=== PATIENT | female | born 1960 | race Caucasian/White ===

== ENCOUNTER 2016-12-01 13:00 | Inpatient (IN) | payer BC ==
[~2016-12-01] VITALS: Ht 167.6 cm; Wt 91.0 kg
--- NOTE | ~2016-12-01 | DS ---
PATIENT'S NAME: MARTIN MURILLO [facility] AGE: 56 Y [address] ROOM: [place] [address] LOCATION: [facility] ADMIT DATE: 01/18/2017 Discharge Summary DISCHARGE DATE: 01/20/2017 FAMILY PHYSICIAN: Enrique Garcia MD ATTENDING PHYSICIAN: Clifton Fischer PRIMARY DIAGNOSIS: Degenerative joint disease of the right knee. SECONDARY DIAGNOSES: 1. Depressive disorder. 2. Anxiety. 3. Gastroesophageal reflux disease. 4. Irritable bowel syndrome. 5. Hyperlipidemia. PROCEDURE PERFORMED: Right total knee arthroplasty. HISTORY: The patient is a 56-year-old female, who presents with advanced right knee degenerative joint disease and associated severely compromised activities of daily living. The patient has decided to proceed with total knee arthroplasty after having been thoroughly counseled regarding the risks, benefits, limitations, and alternatives. Please refer to the outpatient clinic notes and admission history and physical for this patient. HOSPITAL COURSE: The patient underwent a right total knee arthroplasty on 01/18/2017 without complications. Spinal anesthesia plus adductor canal block plus periarticular local anesthesia was utilized. The patient received 24 hours of perioperative prophylactic antibiotics and remained hemodynamically stable, neurovascularly intact throughout the entire hospital course. The postoperative prophylactic deep venous thrombosis prophylaxis consisted of Xarelto, early mobilization and pneumatic compression devices. Daily physical therapy for gait training, transfer training range of motion and quadriceps isometric exercises were received. The patient progressed well in physical therapy. On the date of discharge, 01/20/2017, the incision at the knee was healing well and showed no signs of infection. DISPOSITION: Home. DISCHARGE ACTIVITY: The patient is to bear weight as tolerated with range of motion and quadriceps isometric exercises as instructed. The operative extremity is to be elevated at least 90% of the day. There is to be sterile 4x4 gauze dressings to the incision daily. Dr. Fischer is to be notified immediately if there is any increased pain, fevers, chills erythema or drainage. PATIENT'S NAME: MARTIN MURILLO [facility] AGE: 56 Y [address] ROOM: [place] [address] LOCATION: [facility] ADMIT DATE: 01/18/2017 Discharge Summary DISCHARGE DATE: 01/20/2017 FAMILY PHYSICIAN: Enrique Garcia MD ATTENDING PHYSICIAN: Clifton Fischer DISCHARGE MEDICATIONS: 1. Xarelto 10 mg 1 tablet p.o. daily for 12 days for postop DVT prophylaxis. 2. Gabapentin 300 mg 1 tablet every night for 7 days for pain. 3. Hydromorphone 2 mg 1 to 2 tablets p.o. every 4 hours p.r.n. for pain. 4. Diazepam 5 mg 1/2 to 1 tablet p.o. every 6 hours p.r.n. for pain. 5. Celebrex 200 mg 1 tablet p.o. b.i.d. x7 days for pain. FOLLOWUP: Followup appointment is to be with VALERIA Sam, 01/25/2017 for her initial postoperative evaluation with x-rays of her knee and suture removal at that time. QAMAR HERNANDEZ PA-C FOR CLIFTON FISCHER MD SMW/modl /[id number] d: 01/26/17 0330 t: 01/26/17 1032, DISCHARGE SUMMARY
--- NOTE | ~2016-12-01 | OR ---
PATIENT'S NAME: MARTIN LEE [facility] AGE: 56 Y [address] ROOM: [place] [address] LOCATION: [facility] ADMIT DATE: 01/18/2017 OR/Procedure Report DISCHARGE DATE: FAMILY PHYSICIAN: Enrique Garcia MD ATTENDING PHYSICIAN: CLIFTON FISCHER SURGEON: Clifton Fischer MD AIR REDUCTION EQUIPMENT OPERATOR: Dain Rodrigez PA-C and Shahid Alexander MEDICAL SUPERVISOR/SORTING COWS WORKER. DATE OF PROCEDURE: 01/18/2017 PREOPERATIVE DIAGNOSES: Right knee degenerative joint disease. Avascular necrosis of right knee, medial femoral condyle. PROCEDURE PERFORMED: Right knee medial compartment unicompartment arthroplasty with Homer SOLANGE robotic arm assistance. ANESTHESIA: Spinal anesthesia plus adductor canal block plus periarticular local anesthesia (ropivacaine with epinephrine and Toradol). DRAINS: None. SPECIMEN: None. COMPLICATIONS: None. ESTIMATED BLOOD LOSS: Less than 5 mL. IMPLANTS: SOLANGE size 3 right medial femoral component and Onlay tibial base plate with size 3, 10-mm SOLANGE X3 Onlay tibial polyethylene insert. DRAINS: None. SPECIMEN: None. COMPLICATIONS: None. TOURNIQUET TIME: Approximately 1 hour. INDICATION FOR PROCEDURE: Ms. Lee is a 56-year-old female, presenting with medial compartment arthritis of the right knee and MRI suggestion of avascular necrosis of the medial femoral condyle. Risks, benefits, limitations, and alternatives to this procedure have been thoroughly reviewed, and informed consent has been granted. We have specifically reviewed risks and implications of infection, deep venous thrombosis, pulmonary embolism, mortality, wear, loosening, stiffness, instability, blood transfusion risks, PATIENT'S NAME: [facility] AGE: 56 Y [address] ROOM: [place] [address] LOCATION: [facility] ADMIT DATE: 01/18/2017 OR/Procedure Report DISCHARGE DATE: FAMILY PHYSICIAN: Enrique Garcia MD ATTENDING PHYSICIAN: CLIFTON FISCHER as well as the potential need for revision, as well as the potential need for conversion to total hip arthroplasty. Informed consent has been granted. DESCRIPTION OF PROCEDURE: The patient was positioned supine after administration of regional anesthesia and prophylactic antibiotics. A well- padded pneumatic tourniquet was placed around her right proximal thigh, and her right lower extremity was prepped and draped with vigilant sterile technique. Examination under anesthesia demonstrated no active skin lesions or masses. There was a moderate effusion. Range of motion was 0 to 140 degrees of flexion. There was no erythema. There was no abnormal warmth. After the right lower extremity had been prepped and draped with vigilant sterile technique, it was elevated and exsanguinated with an Esmarch wrap, and the pneumatic tourniquet was inflated to 300 mmHg. A medial parapatellar arthrotomy was performed. Patellofemoral joint demonstrated no degenerative changes. The visible portions of the lateral compartment demonstrated no pathology. There were no loose bodies. There was no synovitis. The cruciate ligaments were intact. There was a 4 mm wide, sagittal, full-thickness defect at the medial femoral condyle, extending from the anterior aspect of the weightbearing surface of the medial femoral condyle, 2/[address] posteriorly to the posterior aspect of the medial femoral condyle. There was a small osteophyte at the medial margin of the medial femoral condyle. Two distal femoral and 2 proximal tibial partially threaded Steinmann pins were placed (touching the far cortex but not completely penetrating the far cortex). Distal femoral and proximal tibial check points were placed. The knee was placed through a full range of motion and poses were obtained with gentle valgus stress throughout the full range of motion. Component position was optimized virtually. The Shoot it!O robotic-arm bur was utilized to prepare the distal femur and proximal tibia. Trial components were placed. Tracking and component alignment were confirmed to be optimal. The knee was corrected to 2 degrees of residual varus. All trial components were removed, and all prepared osseous surfaces were thoroughly irrigated with bacteriostatic pulsatile saline lavage and dried prior to cementing both components in a single stage using Homer Simplex cement containing premixed tobramycin. All excess cement was removed. When the cement had hardened, final range of motion was assessed. Range of motion PATIENT'S NAME: MARTIN LEE [facility] AGE: 56 Y [address] ROOM: [address] [place] [id number] LOCATION: [facility] ADMIT DATE: 01/18/2017 OR/Procedure Report DISCHARGE DATE: FAMILY PHYSICIAN: Enrique Garcia MD ATTENDING PHYSICIAN: CLIFTON FISCHER was 0 to 140 degrees of flexion. There was excellent ligamentous balance in full extension, mid flexion, and 90 degrees of flexion. Patellar tracking was optimal. The entire joint space and entire incision were thoroughly irrigated with bacteriostatic pulsatile saline lavage. Periarticular soft tissues had been injected with local anesthetic. The arthrotomy was closed with multiple simple interrupted #1 Vicryl sutures. Subcutaneous tissues were irrigated one final time prior to closure of subcutaneous tissues with simple deep interrupted 0 Vicryl. The skin was closed with superficial buried interrupted 2-0 Vicryl followed by surgical justin. The dressings consisted of Xeroform gauze followed by sterile gauze, ABD pads, and an Odell wrap. It should be noted that the physician's tmd teacher assistant played an active, integral role throughout this entire operation. By providing expert retraction, they greatly facilitated and expedited safe and effective exposure of the distal femur, proximal tibia and patella for preparation and implantation of the components. They were also actively involved in the patient's positioning, prepping and draping, as well as wound closure. The patient was transported to the Postanesthesia Care Unit in stable, comfortable condition. MD VICKY GOODMAN/tony /[id number] d: 01/19/17 0022 t: 01/30/17 1004, OPERATIVE SUMMARY
[~2016-12-01 13:00] MED LIST: ADVIL200 MG PO; CELEXA40 MG PO; OMEPRAZOLE40 MG PO; ULTRAM50 MG PO; VALIUM5 MG PO; VICKS NYQUIL C354 M2 PO
--- NOTE | 2017-01-18 19:03 | NUR ---
Significant Event: Alert & oriented. VSS, afebrile, titrated to RA. IV SL, tolerating regular diet. Headache 02/08, gave APAP, Dilaudid, and Tramadol, see eMAR. 2 incontinent voids. Not out of bed yet. Impaired sensation to BLE, denies N/T. Circulation & movement WNL. Follow up: Headache, CIWA
--- NOTE | 2017-01-19 04:53 | NUR ---
Significant Event: A/O X 3. IV SALINE LOCK INTACT. HAD NUMB/TINGLING IN BILATERAL LEGS FEET-TOES, BUT VERY MININMAL TO NORMAL CSM. ACEWRAP DRSG RIGHT KNEE DRY-INTACT. EZ-WRAP INTACT. BILATERAL FOOT PUMPS TO FEET. TAURUS HOSE OFF AT HS. ON ROUTINE SCHEDULED TYLENOL X STRENGTH 1000MG . HAD DILAUDID 2MG TAB X 2 LAST AT 0438 FOR RT KNEE PAIN RATED AT 6 AND SOME ABDOMINAL CARMPING. HAD MIRALAX AT HS. HAD 5 LG LOOSE SOFT BM. VOIDED 2550 ML URINE. TAKES FLUIDS, NO NAUSEA. ON ANCEF IV ATB. AMBULATED TO BR WITH 1 ASSIST, GAITBELT-WALKER, GOOD TOLERANCE. HAD ULTRAM TAB ONE AT 1843 EARLIER IN SHIFT FOR PAIN. Follow up:
--- NOTE | 2017-01-19 12:40 | NUR ---
Introduced self/role to patient and her Evan. Plan is to go home with the help of her . Listed all the DME they have. May need a sock aid, can pick one up at [employer] Wrote my name on her marker board. Will continue to follow.
--- NOTE | 2017-01-19 19:29 | NUR ---
Significant Event: UP TO BR RECLINER WITH MIN ASSIST, NEEDS REMINDED TO PUT RIGHT LEG OUT BEFORE SITTING. HAD DILAUDID 2 MG 1 TAB X4 LAST [id number], HAD VALIUM 5 MG 1 TAB AT 1330, HAD DILAUDID 0.2 MG IV X1 AT 1245, HAD TORADOL 15MG X1 LAST AT 1150. Follow up:
--- NOTE | 2017-01-20 04:30 | NUR ---
Patient alert and oriented x3, very pleasant and cooperative, csm with in normal limits, dressing to knee clean dry and intact, transfers well one assist with walker and gaitbelt, pain did spike around 0300 was given toradol, diluadid PO and IV and valium, is resting soundly now, plans to go home today
[2017-01-20] MEDS ORDERED: TYLENOL EXTRA500 MG PO (13:17)
[2017-01-20] MEDS ORDERED: NEURONTIN300 MG PO (13:18)
[2017-01-20] MEDS ORDERED: MIRALAX17 GM PO (13:19)
[2017-01-20] MEDS ORDERED: XARELTO10 MG PO (13:20)
[2017-01-20] MEDS ORDERED: DILAUDID 2MG(HYD2 MG PO (13:21)
[2017-01-20] MEDS ORDERED: CELEBREX200 MG PO (13:22)
== END 2017-01-20 14:14 | disposition disaster alternative care site (69) | DRG 470 ==
LOC: G3N 12-21 07:00
PROVIDERS: ADMIT Orthopaedic Surgery
PROC: 0SRT0J9 Replacement of Right Knee Joint, Femoral Surface with Synthetic Substitute, Cemented, Open Approach (ICD-10-PCS; principal; 2017-01-18)
PROC: 8E0Y0CZ Robotic Assisted Procedure of Lower Extremity, Open Approach (ICD-10-PCS; principal; 2017-01-18)
DX: M17.11 Unilateral primary osteoarthritis, right knee (principal); M87.9 Osteonecrosis, unspecified; F32.9 Major depressive disorder, single episode, unspecified; F41.9 Anxiety disorder, unspecified; K21.9 Gastro-esophageal reflux disease without esophagitis; E78.5 Hyperlipidemia, unspecified; K58.9 Irritable bowel syndrome, unspecified; E66.9 Obesity, unspecified; Z68.32 Body mass index [BMI] 32.0-32.9, adult
CPT/HCPCS: C1713; C1776; J0690; J1100; J1170; J1885; J2001; J2250; J2405; J2795; J7120